=== PATIENT | female | born 1950 | race Caucasian/White ===

== ENCOUNTER → 2023-12-07 16:00 | Outpatient (REF) | payer OTHER, SELFPAY | LOC: HWRAD 16:00 | PROVIDERS: ATTENDING PHYSICIAN Internal Medicine Pulmonary Disease; FAMILY PHYSICIAN Internal Medicine | DX: L29.8 Other pruritus (principal); R09.81 Nasal congestion | CPT/HCPCS: 70486 ==

== ENCOUNTER → 2024-01-09 14:22 | Outpatient (REF) | payer OTHER, SELFPAY | LOC: HWRAD 14:22 | PROVIDERS: ATTENDING PHYSICIAN Nurse Practitioner Family | DX: S99.911A Unspecified injury of right ankle, initial encounter (principal) | CPT/HCPCS: 73610 ==

== ENCOUNTER → 2024-10-02 12:23 | Outpatient (REF) | payer OTHER, SELFPAY | LOC: HWWDC 12:23 | PROVIDERS: ATTENDING PHYSICIAN Obstetrics & Gynecology Gynecology; FAMILY PHYSICIAN Family Medicine | DX: Z12.31 Encounter for screening mammogram for malignant neoplasm of breast (principal) | CPT/HCPCS: 77063; 77067 ==